=== PATIENT | male | born 1995 | race American Indian/Alaskan Native ===

== ENCOUNTER 2019-03-19 18:38 | Emergency (ER) | payer OTHER ==
[2019-03-19 18:53] VITALS: BP 134/83
--- NOTE | 2019-03-19 18:56 | Event Note ---
ED Screening Note ED Screening Note: pt presents with dry cough that began yesterday he has associated sore throat, CALDERÓN, congestion, sinus pressure +nausea, vomiting, diarrhea a couple of episodes today +subjective fever, took tylenol no sick contacts no abdominal pain, no urinary sx, no ear pain, no ear drainage no PMHx no allergies to meds +marijuana This initial assessment/diagnostic orders/clinical plan/treatment(s) is/are subject to change based on patients health status, clinical progression and re- assessment by fellow clinical providers in the ED. Further treatment and workup at subsequent clinical providers discretion. Patient/guardian urged not to elope from the ED as their condition may be serious if not clinically assessed and managed. will d/c from triage for sinusitis
--- NOTE | 2019-03-19 18:57 | Emergency Department Report ---
- General Chief Complaint: Nausea/Vomiting/Diarrhea Stated Complaint: COLD SX/VOMITING Time Seen by Provider: 03/19/19 18:50 Source: patient Mode of arrival: Ambulatory Limitations: No Limitations - History of Present Illness Initial Comments: pt is a 24 yo presents with dry cough that began yesterday. pt has associated sore throat, CALDERÓN, congestion, sinus pressure. states he had a couple of episodes of N/V/D. pt endorses subjective fever, took tylenol. he denies any sick contacts. pt denies any abdominal pain, no urinary sx, no ear pain, no ear drainage. no PMHx, no allergies to meds , endorses marijuana use. - Related Data Previous Rx's Medication Instructions Recorded Last Taken Type Amoxicillin/Potassium Clav 1 each PO BID 7 Days #14 tablet 03/19/19 Unknown Rx [Augmentin 875-125 Tablet] Fluticasone [Flonase] 1 spray NS QDAY #1 bottle 03/19/19 Unknown Rx Ondansetron [Zofran Odt] 4 mg PO Q8HR PRN #14 tab.rapdis 03/19/19 Unknown Rx guaiFENesin ER [Mucinex ER] 600 mg PO Q12H #14 tablet.er 03/19/19 Unknown Rx Allergies Allergy/AdvReac Type Severity Reaction Status Date / Time No Known Allergies Allergy Unverified 03/19/19 18:39 ED Review of Systems ROS: Stated complaint: COLD SX/VOMITING Other details as noted in HPI Comment: All other systems reviewed and negative ED Past Medical Hx - Past Medical History Previous Medical History?: No - Surgical History Past Surgical History?: No - Social History Smoking Status: Never Smoker Substance Use Type: Marijuana - Medications Home Medications: Home Medications Medication Instructions Recorded Confirmed Last Taken Type Amoxicillin/Potassium Clav 1 each PO BID 7 Days #14 tablet 03/19/19 Unknown Rx [Augmentin 875-125 Tablet] Fluticasone [Flonase] 1 spray NS QDAY #1 bottle 03/19/19 Unknown Rx Ondansetron [Zofran Odt] 4 mg PO Q8HR PRN #14 tab.rapdis 03/19/19 Unknown Rx guaiFENesin ER [Mucinex ER] 600 mg PO Q12H #14 tablet.er 03/19/19 Unknown Rx ED Physical Exam - General Limitations: No Limitations General appearance: alert, in no apparent distress - Head Head exam: Present: atraumatic, normocephalic - Eye Eye exam: Present: normal appearance - ENT ENT exam: Present: normal orophraynx, other (erythematous turbinates, mucus production bilaterally, maxillary sinus TTP bilaterally, no frontal TTP) - Respiratory Respiratory exam: Present: normal lung sounds bilaterally. Absent: respiratory distress, wheezes, rales, rhonchi, stridor, chest wall tenderness, accessory muscle use, decreased breath sounds, prolonged expiratory - Cardiovascular Cardiovascular Exam: Present: regular rate, normal rhythm, normal heart sounds. Absent: systolic murmur, diastolic murmur, rubs, gallop - GI/Abdominal GI/Abdominal exam: Present: soft, normal bowel sounds. Absent: distended, tenderness, guarding, rebound, rigid - Neurological Exam Neurological exam: Present: alert, oriented X3 - Psychiatric Psychiatric exam: Present: normal affect, normal mood - Skin Skin exam: Present: warm, dry, intact ED Course Vital Signs 03/19/19 18:51 Temperature 99.5 F Pulse Rate 82 Respiratory 18 Rate Blood Pressure 134/83 O2 Sat by Pulse 98 Oximetry ED Medical Decision Making - Medical Decision Making pt is a 24 yo presents with dry cough that began yesterday. pt has associated sore throat, CALDERÓN, congestion, sinus pressure. states he had a couple of episodes of N/V/D. pt endorses subjective fever, took tylenol. he denies any sick contacts. pt denies any abdominal pain, no urinary sx, no ear pain, no ear drainage. no PMHx, no allergies to meds , endorses marijuana use. vitals are normal. on exam: erythematous turbinates, mucus production bilaterally, maxillary sinus TTP bilaterally, no frontal TTP, lungs are clear bilaterally, no w/r/r, no abd tenderness, normal bowel sounds. examination consistent with sinusitis/URI. given prescription for zofran, augmentin, flonase, and mucinex. advised pt to please take medication as prescribed. drink plenty of fluids, eat a bland diet. may take tylenol or ibuprofen for any discomfort or fever of 100.4 or greater. follow up with a primary care doctor in the next 2-3 days. return to the emergency room for any new or worsening symptoms. Critical care attestation.: If time is entered above; I have spent that time in minutes in the direct care of this critically ill patient, excluding procedure time. ED Disposition Clinical Impression: Sinusitis Qualifiers: Sinusitis location: maxillary Chronicity: acute Recurrence: non-recurrent Qualified Code(s): J01.00 - Acute maxillary sinusitis, unspecified Upper respiratory infection Qualifiers: URI type: unspecified URI Qualified Code(s): J06.9 - Acute upper respiratory infection, unspecified Disposition: TO HOME OR SELFCARE Is pt being admited?: No Does the pt Need Aspirin: No Condition: Stable Instructions: Sinusitis (ED), Upper Respiratory Infection (ED) Additional Instructions: please take medication as prescribed. drink plenty of fluids, eat a bland diet. may take tylenol or ibuprofen for any discomfort or fever of 100.4 or greater. follow up with a primary care doctor in the next 2-3 days. return to the emergency room for any new or worsening symptoms. Prescriptions: Amoxicillin/Potassium Clav [Augmentin 875-125 Tablet] 1 each PO BID 7 Days #14 tablet Fluticasone [Flonase] 1 spray NS QDAY #1 bottle guaiFENesin ER [Mucinex ER] 600 mg PO Q12H #14 tablet.er Ondansetron [Zofran Odt] 4 mg PO Q8HR PRN #14 tab.rapdis PRN Reason: Nausea And Vomiting Referrals: [facility] [Provider Group] - 2-3 Days [facility] [Outside] - 2-3 Days [facility] [Outside] - 2-3 Days Forms: Work/School Release Form(ED) Time of Disposition: 19:08 Print Language: EGYPTIAN
== END 2019-03-19 19:45 | disposition home or self-care (01) ==
LOC: ED 18:38
DX: J01.00 Acute maxillary sinusitis, unspecified (principal); J06.9 Acute upper respiratory infection, unspecified; F12.10 Cannabis abuse, uncomplicated